=== PATIENT | female | born 1955 | race Caucasian/White ===

== ENCOUNTER 2018-10-22 08:20 | Outpatient (REF) | payer OTHER, SELFPAY ==
[2018-10-22 12:07] LABS: HGB 14.8 g/dL (12.0-15.5); Mean Corp. HGB Concentration 32.9 g/dL (32.0-36.0); Mean Corpuscular Hemoglobin 30.2 pg (27.0-33.0); Mean Corpuscular Volume 91.8 fL (80-95); Mean Platelet Volume 10.4 fL (8.0-11.0); Platelet Count 251 x1000/uL (130-400); RBC Distribution Width 13.7 % (11.7-14.6); White Blood Cell Count 5.14 k/cumm (4.4-10.8)
[2018-10-22 12:50] LABS: ALT 51 U/L (12-78); AST 26 U/L (15-37); Alkaline Phosphatase 88 U/L (46-116); Anion Gap 9.9 mmol/L (3-11); BUN 16 mg/dL (7-18); Bilirubin, Total 0.4 mg/dL (0.2-1.0); CO2 28.1 mmol/L (21.0-32.0); CREATININE 0.74 mg/dL (0.55-1.02); Calcium 9.2 mg/dL (8.5-10.1); Chloride 106 mmol/L (98-107); Cholesterol 208 mg/dL (50-200); Glucose 97 mg/dL (70-100); HDL Cholesterol 54 mg/dL (40-60); LDL CHOLESTEROL 127 mg/dL (<100); Potassium 4.1 mmol/L (3.5-5.1); Sodium 144 mmol/L (136-145); TSH (W/Ref FT4) 2.66 uIU/mL (0.358-3.74); Total Protein 6.6 g/dL (6.4-8.2); Triglyceride 111 mg/dL (30-150)
== END 2018-10-22 08:40 ==
LOC: NCHCN 08:20
PROVIDERS: PCP Family Medicine; Visit Provider Family Medicine
DX: Z00.00 Encounter for general adult medical examination without abnormal findings (principal); Z13.220 Encounter for screening for lipoid disorders; Z13.29 Encounter for screening for other suspected endocrine disorder
CPT/HCPCS: 80053; 80061; 83721; 85027; 84443

== ENCOUNTER 2018-10-23 00:19 | Outpatient (CLI) | payer OTHER, SELFPAY ==
--- NOTE | 2018-10-23 15:48 | DI.DEXA_ITS ---
SYMPTOMS/DIAGNOSIS: MENOPAUSE SCREENING, Z78.0 DEXA SCAN: DEXA scan was performed according to the usual protocol. The findings for left hip scanning are T score -.8 with left femoral neck T score -.6. The lumbar spine scanning shows T score -.3. The left forearm scanning shows T score -.5. CONCLUSION: Findings consistent with normal bone density according to the WHO criteria. Please note that the lateral vertebral scanogram shows no evidence of a vertebral compression fracture.
--- NOTE | 2018-10-23 16:00 | DI.MAMMO_ITS ---
SYMPTOMS/DIAGNOSIS: SCREENING, Z12.31 MAMMOGRAM: Mammograms were interpreted according to the usual protocol including computer analysis with CAD system, tomosynthesis and C view imaging. The breasts are of moderate density with fairly symmetrical distribution of fibroglandular tissue. No dominant mass or clumped microcalcification is identified in either breast. Current examination is compared with the previous examinations including June 2010 and there has been no gross interval change in appearance in comparison with the previous studies. CONCLUSION: No specific evidence of malignancy at this time. Routine screening examinations are suggested at yearly intervals due to the family history of breast carcinoma. Category 1, breast density category B. MQSA ASSESSMENT OF FINDINGS: Negative. Category 1. Patient will receive a letter notifying them of these results. BI-RADS category B. There are scattered areas of fibroglandular density.
== END 2018-10-23 00:39 ==
PROVIDERS: PCP Family Medicine; Visit Provider Family Medicine
DX: Z12.31 Encounter for screening mammogram for malignant neoplasm of breast (principal); Z80.3 Family history of malignant neoplasm of breast; Z13.820 Encounter for screening for osteoporosis; Z78.0 Asymptomatic menopausal state
CPT/HCPCS: 77063; 77067; 77080

== ENCOUNTER 2018-11-07 09:51 | Outpatient (REF) | payer OTHER, SELFPAY ==
--- NOTE | 2018-11-07 08:45 | PAPFT_PTH ---
PATIENT: Teto Pena LOC: [facility] U#:[id number] AGE/SX: 63/F ROOM: RE11/07/[address]: Brandi Verma : 1955 BED: DIS: 11/07/2018 SPEC #: [id number] RECD: 11/07/18 12:54 STATUS: RAO REQ #: [id number] ALEX: 11/07/18 08:[address]: Brandi Verma DEPT: [facility] Cytology RECD BY: Shey Shukla ENTERED: 11/07/18 12:54 SP TYPE: PAPFT OTHR DR: Suzanne Kim Tissues: 1 - CX/ENDOCX FOR PAP SMEARS Procedures: PAP THIN PREP/UVM Screening HPV DNA PROBE Comments: [id number]
== END 2018-11-07 10:11 ==
LOC: NCHCN 09:51
PROVIDERS: PCP Family Medicine; Visit Provider Nurse Practitioner Family
DX: Z12.4 Encounter for screening for malignant neoplasm of cervix (principal); Z11.51 Encounter for screening for human papillomavirus (HPV); Z00.00 Encounter for general adult medical examination without abnormal findings; Z01.419 Encounter for gynecological examination (general) (routine) without abnormal findings
CPT/HCPCS: 88142; 87624

== ENCOUNTER 2018-11-19 01:22 | Outpatient (CLI) | payer OTHER, SELFPAY ==
--- NOTE | 2018-11-19 15:24 | DI.US_ITS ---
SYMPTOM/DIAGNOSIS: BILATERAL CAROTID BRUITS R09.89 ULTRASOUND CAROTIDS: The carotid arteries appear intact. Antegrade flow was noted in the vertebrals. Velocity measurements reveal no evidence of significant carotid stenosis.
== END 2018-11-19 01:42 ==
PROVIDERS: PCP Family Medicine; Visit Provider Nurse Practitioner Family
DX: R09.89 Other specified symptoms and signs involving the circulatory and respiratory systems (principal)
CPT/HCPCS: 93880

== ENCOUNTER 2019-04-19 06:51 | Day surgery (SDC) | payer OTHER, SELFPAY ==
[2019-04-19 06:58] VITALS: BP 136/76; PULSE 75; RESP 16; TEMP 37.1; O2SAT 97
[2019-04-19] MEDS: Lactated Ringers 1,000 ML 80 ML IV (07:20)
--- NOTE | 2019-04-19 07:56 | W.PM.HP.N ---
Date of service: 04/19/19 Time of Service: 07:57 Assessment and Plan Assessment and plan (1) Encounter for screening colonoscopy: Status: Acute Assessment and plan: I advised colonoscopy. The procedure was described including the risks of perforation with need for surgery or bleeding. Prep instructions discussed. Patient agrees to proceed. History of Present Illness Narrative: Patient presents for her first screening colonoscopy. No FH colon cancer No abdominal pain, no change in bowel habits or blood in the stool. Review of Systems All systems reviewed & are unremarkable except as noted in HPI and below PFSH Medical History Eczema (Acute) Hypertension (Chronic) Surgical History History of back surgery (Acute) History of total bilateral knee replacement (Acute ~09/2009) Status post revision of total knee replacement (Acute ~03/2011) Family History Other Breast cancer Social History Smoking/Tobacco Use Status: Never Alcohol Intake: current Alcohol Intake frequency: a few times a month Substance use type: does not use Do you feel safe at home: Yes Do you feel safe in your relationship?: Yes Meds Home Medications and Allergies Home Medications Medication Instructions Recorded Confirmed Type calcium carbonate 500 mg calcium 500 mg PO DAILY 02/12/19 04/19/19 History (1,250 mg) capsule lisinopril 10 mg tablet 10 mg PO HS 02/12/19 04/19/19 History pysazptc-rmd-jtnt-FA-Ca carb-vit K 1 tab PO DAILY 02/12/19 04/19/19 History 18 mg iron-400 mcg-500 mg tablet omega-3 fatty acids 1,000 mg 1,000 mg PO DAILY 02/12/19 04/19/19 History capsule bisacodyl 5 mg tablet,delayed 5 mg PO ONCE #4 tab 03/15/19 04/19/19 Rx release polyethylene glycol 3350 17 238 g PO ONCE #238 gm 03/15/19 04/19/19 Rx gram/dose oral powder Allergies Allergy/AdvReac Type Severity Reaction Status Date / Time Penicillins Allergy Unknown Verified 04/16/19 14:27 acetaminophen [From Percocet] AdvReac Mild Nausea and Unverified 04/16/19 14:27 vomiting oxycodone [From Percocet] AdvReac Mild Nausea and Unverified 04/16/19 14:27 vomiting Exam Const General: healthy appearing and not in acute distress Nutritional Appearance: well nourished Orientation: oriented x3 HENMT Head: normal to inspection Eyes Sclera: sclerae normal Pupils: PERRL Neck Neck: no lymphadenopathy Thyroid: thyroid normal Lymphatic: no lymphadenopathy noted Chest Breast inspection: normal inspection of the axillae Resp Effort & Inspection: normal respiratory effort Auscultation: clear to auscultation bilaterally and no wheezes Cardio Rate: regular rate Rhythm: regular rhythm Pulses: dorsalis pedis pulses present GI Inspection: non-distended Palpation: soft, no hepatosplenomegaly, no hernias and nontender Skin General skin exam: no rashes or lesions noted Neuro General: alert Cognition: normal cognition Extrem General: normal to inspection Psych Affect: normal affect Attitude: cooperative Results Last Vital Signs Temp 98.8 F 04/19/19 06:58 Pulse 75 04/19/19 06:58 Resp 16 04/19/19 06:58 BP 136/76 04/19/19 06:58 Pulse Ox 97 04/19/19 06:58
--- NOTE | 2019-04-19 08:03 | W.PM.DSUDISC ---
Discharge Plan Disposition Patient Disposition: HOME Condition: Good Discharge Details Reason For Visit: Colonoscopy Attending Provider: Maegan Goodrich Primary Care Provider: Suzanne Kim Home Meds and New Rx's Prescriptions: Continued Women's Multivitamin 18 mg iron-400 mcg-500 mg tablet 1 tab PO DAILY RF: 0 omega-3 fatty acids [Fish Oil Concentrate] 1,000 mg capsule 1,000 mg PO DAILY RF: 0 calcium carbonate 500 mg calcium (1,250 mg) capsule 500 mg PO DAILY RF: 0 lisinopril 10 mg tablet 10 mg PO HS RF: 0 Discontinued polyethylene glycol 3350 17 gram/dose powder 238 g PO ONCE Qty: 238 RF: 0 bisacodyl [Dulcolax (bisacodyl)] 5 mg tablet,delayed release (DR/EC) 5 mg PO ONCE Qty: 4 RF: 0 Discharge Instructions Additional Instructions: Findings: Two small polyps were removed. My office will contact you with biopsy results. Follow up: Plan for a follow up colonoscopy in 5 years. Please call if you develop: fevers >101.5 Nausea or Vomiting Abdominal pain that is not transient DAY SURGERY UNIT POST COLONOSCOPY INSTRUCTIONS 1. Because there will be medication in your system for the next 24 hours, you may feel a little sleepy. Your coordination will be affected. Therefore: a. Do not drive or operate dangerous equipment for 24 hours. b. Do not drink alcohol beverages for 24 hours (not even beer). c. Plan to go home and rest for the day. 2. Generally there are no restrictions on your activity after a day or so has gone by, but you may feel a bit fatigued for a few days. 3 After you arrive home you may have a light meal and return to a normal diet as you can tolerate it without feeling sick to your stomach. 4. After surgery, you may feel pain or discomfort. This should be only transient, but if it persists please contact your doctor. 5. If there are any questions regarding the findings of your procedure, please feel free to contact your doctor. 6. If you are unable to contact your doctor with a problem, contact the hospital at [phone]. 7. Continue all your regular medications unless directed otherwise. I understand the above instructions and have no questions. Signature of Patient or Responsible Adult Escort Date/Time Name of Responsible Adult Escort Signature of Nurse Date/Time Activity:: Activity as Tolerated Diet:: As Tolerated Discharge Orders Discharge Orders: Discharge Order (Routine); Ordered 04/19/19 Ordered By: Maegan Goodrich DS: Diagnosis Discharge Diagnosis (1) Encounter for screening colonoscopy: Status: Acute (2) Colon polyps: Status: Acute
[2019-04-19 09:20] VITALS: BP 130/79; PULSE 60; RESP 16; TEMP 36.4; O2SAT 100
--- NOTE | 2019-04-19 09:40 | BOWEL_PTH ---
PATIENT: Teto Pena LOC: [facility] U#:[id number] AGE/SX: 64/F ROOM: RE04/19/[address]: Maegna Goodrich MD : 1955 BED: DIS: 04/19/2019 SPEC #: [id number] RECD: 04/19/19 12:48 STATUS: RAO REQ #: [id number] ALEX: 04/19/19 09:[address]: Maegan Goodrich DEPT: Surgical Specimen RECD BY: Shey Shukla ENTERED: 04/19/19 12:50 SP TYPE: Bowel OTHR DR: Suzanne Kim Tissues: 1 - BIOPSY BOWEL 2 - BIOPSY BOWEL Procedures: GROSS AND MICRO LEVEL 4 Comments: [id number]
--- NOTE | 2019-04-19 10:47 | COLE_ITS ---
DATE OF PROCEDURE: April 19, 2019 PREOPERATIVE DIAGNOSIS: Screening. POSTOPERATIVE DIAGNOSIS: 1. Colon polyps. 2. Mild diverticulosis. PROCEDURE: Colonoscopy with cold forceps polypectomy. SURGEON: Maegan Goodrich M.D. ANESTHESIA: General. INDICATIONS: This is a 64-year-old woman who presents for her first screening colonoscopy. She is a symptomatic and has no family history of colon cancer. PROCEDURE: She was placed in the left Sim's position. Propofol was titrated to sedation. Digital r ectal examination revealed no abnormalities. The scope was advanced to the cecum without difficulty. The ileocecal valve and appendiceal orifice were clearly identified. Her prep was excellent. The scope was slowly withdrawn with no abnormalities seen within the ascending or transverse colon. In t he mid descending colon there was a diminutive polyp that was removed with the cold forceps and sent to Pathology. She also had a < 1 cm polyp in the sigmoid region that was removed with cold forceps a nd sent to Pathology. This had the appearance of a hyperplastic polyp. I visualized one diverticulu m in the vicinity. The rectum was normal, including on retroflex view. She tolerated the procedure well and was stable to recovery. If the polyps are adenomatous, she will need a follow-up colonoscop y again in five years. cc: Suzanne Kim M.D.
== END 2019-04-19 09:40 | disposition home or self-care (01) ==
PROVIDERS: PCP Family Medicine; Visit Provider Surgery
PROC: 0DJD8ZZ Inspection of Lower Intestinal Tract, Via Natural or Artificial Opening Endoscopic (ICD-10-PCS; CPT 45378; principal; 2019-04-19 08:15)
DX: Z12.11 Encounter for screening for malignant neoplasm of colon (principal); D12.4 Benign neoplasm of descending colon; K57.30 Diverticulosis of large intestine without perforation or abscess without bleeding; I10 Essential (primary) hypertension
CPT/HCPCS: 45380; 88305; NC

== ENCOUNTER 2020-07-24 02:41 | Outpatient (CLI) | payer OTHER, SELFPAY ==
--- NOTE | 2020-07-24 | DI.MAMMO_ITS ---
EXAM: MAMMO SCREENING CLINICAL HISTORY: SCREENING, Z12.31 TECHNIQUE: Mammograms were interpreted according to the usual protocol including computer analysis w [place] CAD system, tomosynthesis and C-view imaging. COMPARISON: 2019 FINDINGS: The breasts are composed of heterogeneously dense fibroglandular densities, Breast Density category C . No suspicious masses or suspicious microcalcifications are seen. Vascular calcifications are inciden tally noted. No skin thickening or abnormal axillary lymph nodes are seen. There has been no significant change from prior exams. IMPRESSION: BI-RADS Category 1, Negative mammogram. Yearly screening mammography is recommended. Breast Density Category C, heterogeneously Dense. The mammogram demonstrates the patient's breast tissue is dense. Dense breast tissue is very common a nd is not abnormal but dense breast tissue can make it harder to find cancer on a mammogram. Also, de nse breast tissue may increase breast cancer risk. This information about the result of the mammogram report was provided to the patient to raise their awareness. Use this report when you speak with the patient about their risks for breast cancer, which includes their family history. At that time, you may recommend additional screening tests (Ultrasound or MRI) as they might be useful based on their r isk. A negative radiographic report should not delay biopsy if a dominant or clinically suspicious mass is present. Up to ten percent of cancers are not identified on mammography. A negative report may reinforce clinical impression. Adenosis and dense breasts may obscure an underlying neoplasm. False positive reports average 6 to 10%.
== END 2020-07-24 02:42 ==
LOC: DI 02:41
PROVIDERS: PCP Nurse Practitioner Family; Visit Provider Nurse Practitioner Family
DX: Z12.31 Encounter for screening mammogram for malignant neoplasm of breast (principal)
CPT/HCPCS: 77063; 77067

== ENCOUNTER 2020-09-07 09:01 | Outpatient (REF) | payer OTHER, SELFPAY ==
[2020-09-07 13:36] LABS: ALT 47 U/L (14-59); AST 23 U/L (15-37); Anion Gap 6.5 mmol/L (3-11); BUN 15 mg/dL (7-18); CO2 29.5 mmol/L (21.0-32.0); CREATININE 0.7 mg/dL (0.55-1.02); Calcium 9.4 mg/dL (8.5-10.1); Calculated LDL 135 mg/dL (<100); Chloride 107 mmol/L (98-107); Cholesterol 229 mg/dL (<200); Glucose 95 mg/dL (74-106); HDL Cholesterol 45 mg/dL (40-60); Potassium 4.2 mmol/L (3.5-5.1); Sodium 143 mmol/L (136-145); Triglyceride 249 mg/dL (<150)
== END 2020-09-07 09:02 | disposition home or self-care (01) ==
LOC: NCHCN 09:01
PROVIDERS: PCP Nurse Practitioner Family; Visit Provider Nurse Practitioner Family
DX: E78.5 Hyperlipidemia, unspecified (principal); I10 Essential (primary) hypertension; Z00.00 Encounter for general adult medical examination without abnormal findings
CPT/HCPCS: 80048; 80061; 84450; 84460

== ENCOUNTER 2021-03-24 09:22 | Emergency (ER) | payer OTHER, SELFPAY ==
[2021-03-24 09:27] VITALS: BP 170/91; PULSE 109; TEMP 36.5; O2SAT 97
--- NOTE | 2021-03-24 09:30 | DI.CT_ITS ---
Exam(s) CT NECK W EXAM: CT NECK W CLINICAL HISTORY: eval Right side mass. TECHNIQUE: Imaging Protocol: Axial CT with IV contrast was performed with multi-slice acquisition a nd multi-planar and/or 3D reconstructions. CONTRAST MATERIAL: Intravenous: Omnipaque 350 Contrast volume:100 mL COMPARISON: No exams were available for comparison FINDINGS: Uppermost images reveal some mucosal thickening in the left maxillary sinus. No fluid level therein. Visualized right maxillary sinus is clear. Visualized sphenoid sinuses are clear. The tissues of the nasopharynx are symmetrical. The uvula is relatively midline but there is swelling in the right-side of the veronika and hypopharynx do wn to the level the hyoid bone. This appears to be related to an enlarged the right submandibular gl and which measures 2.5 cm AP by 2.4 cm wide by 4 cm cranial and contains a prominent 13 by 8 by 11 mi llimeter calculus at the junction with the submandibular [place]'s duct. There is some surrounding e heidi. No prominent lymphadenopathy. The opposite-left submandibular gland appears unremarkable and does not contain calculi. Both parotid glands appear unremarkable. Edema from the above process exhibits some mass effect upon the ipsilateral right vallecula. Below t his level the aryepiglottic folds and vocal cords appear unremarkable as does the subglottic airway. Thyroid gland exhibits normal size and no obvious nodules. There is no subclavicular adenopathy. IMPRESSION: 1. There is a large 13 x 8 x 11 millimeter calculi in the right submandibular gland at José Miguel's duct . There is enlargement of the ipsilateral submandibular gland and surround edema as described above. ENT consultation recommended. 2. The opposite-left submandibular gland appears unremarkable and there are no significant focal find ings in the parotid glands. Report called by myself to ER provider RADIATION DOSE DELIVERED: 268.78mGy.cm Total DLP DATA REPOSITORY: All CT scans at this facility are submitted to the National Radiology Data Registry (NRDR) Dose Index Registry (DIR) with the [employer] (ACR). RADIATION OPTIMIZATION: All CT scans at this facility use at least one of these dose optimization te chniques: automated exposure control; mA and/or kV adjustment per patient size (includes targeted exa ms where dose is matched to clinical indication); or iterative reconstruction.
--- NOTE | 2021-03-24 09:47 | W.ED.GENAD ---
Discharge Plan Disposition Patient Disposition: HOME Condition: Improving Discharge Details Clinical Impression: Sialadenitis Primary Care Provider: Brandi Verma ED Provider: Carmela Warner Home Meds and New Rx's Prescriptions: New clindamycin HCl 300 mg capsule 300 mg PO BID 7 Days Qty: 14 RF: 0 prednisone 20 mg tablet 40 mg PO DAILY 5 Days Qty: 10 RF: 0 Continued losartan 50 mg tablet 100 mg PO DAILY RF: 0 amoxicillin-pot clavulanate 875-125 mg tablet 1 tab PO BID RF: 0 No Action clindamycin HCl 300 mg capsule 600 mg PO DIRECTED PRNRF: 0 Discharge Instructions Instructions: Sialoadenitis (ED) Additional Instructions: Take the pain medication, steroids and antibiotics as directed. Try yogurt or probiotic while on antibiotics. Please follow-up with ear nose and throat soon as possible. Return to the ER for any worsening trouble swallowing, trouble breathing, fever, worsening swelling or any concerns. Please suck on sour patch candies or similar every hour. Continue warm moist massage at least 3 times a day as tolerated. Please take Ibuprofen with food every 4-6 hours as needed for pain and swelling. Referrals: Julien Thomas MD [ [facility] STAFF PHYSICIAN] - 1 week (Right Sialadenitis) Brandi Verma [Primary Care Provider] - 2 weeks Discharge Data Discharge Date/Time-TO BE ENTERED AT DEPARTURE: 03/24/21 14:21 Medical Decision Making 65-year-old female presents to the ER with chief complaint of right sided neck mass which she reports began night. She was recently diagnosed with cellulitis/peritonitis and has been taking antibiotics/Augmentin since Monday. She has had 5 doses of the Augmentin with no improvement. Pain has gotten worse, she reports pain with swallowing, has not taken her blood pressure medication unable to eat or drink since worsening. She has had an episode of this similarly and had improvement with antibiotics within a couple of days. She reports that she has had some drainage in the shower with warm compresses. She has been sucking on sour patch candies little to no relief. She has a past medical history of hypertension and eczema surgical history includes bilateral knee replacement, back surgery and. She is a never smoker. Drinks alcohol few times a month. She has been taking Tylenol or ibuprofen for pain. She has not taken anything for pain prior to arrival today. 1233: Spoke with Dr. Thomas with ENT discussed patient's case and details he was able to personally view the CT images. Who recommends admission with IV antibiotics. He also recommends 12mg Dexamethasone, clindamycin 90 mg every 8 and Augmentin twice daily, sour candies every hour while awake and warm moist massage, surgery in 6-8 weeks after infection is controlled. Exam(s) COMPARISON: No exams were available for comparison FINDINGS: Uppermost images reveal some mucosal thickening in the left maxillary sinus. No fluid level therein. Visualized right maxillary sinus is clear. Visualized sphenoid sinuses are clear. The tissues of the nasopharynx are symmetrical. The uvula is relatively midline but there is swelling in the right-side of the veronika and hypopharynx down to the level the hyoid bone. This appears to be related to an enlarged the right submandibular gland which measures 2.5 cm AP by 2.4 cm wide by 4 cm cranial and contains a prominent 13 by 8 by 11 millimeter calculus at the junction with the submandibular [place]'s duct. There is some surrounding edema. No prominent lymphadenopathy. The opposite-left submandibular gland appears unremarkable and does not contain calculi. Both parotid glands appear unremarkable. Edema from the above process exhibits some mass effect upon the ipsilateral right vallecula. Below this level the aryepiglottic folds and vocal cords appear unremarkable as does the subglottic airway. Thyroid gland exhibits normal size and no obvious nodules. There is no subclavicular adenopathy. IMPRESSION: 1. There is a large 13 x 8 x 11 millimeter calculi in the right submandibular gland at [place]'s duct. There is enlargement of the ipsilateral submandibular gland and surround edema as described above. ENT consultation recommended. 2. The opposite-left submandibular gland appears unremarkable and there are no significant focal findings in the parotid glands. 1315: Spoke with patient regarding CT results, lab results, discussion with Dr. Thomas ear nose and throat and his recommendation for admission for IV antibiotics and surgery at a later date. She verbalized understanding. She would prefer to be discharged home with 2 courses of oral antibiotic and outpatient follow-up with ear nose and throat. I did discuss strict return instructions with her at length. I did discuss his recommendations for sour candies every hour while awake and massage and clindamycin and Augmentin. She verbalizes understanding. Patient opted to be discharged home, with strict return instructions relayed. HPI General Mode of arrival: ambulatory. Date/Time Provider Initiated Documentation: 03/24/21 09:32. Limitations to Documentation: no limitations. Information obtained by: patient, family, RN notes reviewed and old records reviewed. HPI Narrative: 65-year-old female presents to the ER with chief complaint of right sided neck mass which she reports began night. She was recently diagnosed with cellulitis/peritonitis and has been taking antibiotics/Augmentin since Monday. She has had 5 doses of the Augmentin with no improvement. Pain has gotten worse, she reports pain with swallowing, has not taken her blood pressure medication unable to eat or drink since worsening. She has had an episode of this similarly and had improvement with antibiotics within a couple of days. She reports that she has had some drainage in the shower with warm compresses. She has been sucking on sour patch candies little to no relief. She has a past medical history of hypertension and eczema surgical history includes bilateral knee replacement, back surgery and. She is a never smoker. Drinks alcohol few times a month. She has been taking Tylenol or ibuprofen for pain. She has not taken anything for pain prior to arrival today. Related Data Home Medications Medication Instructions Recorded Confirmed amoxicillin-pot clavulanate 1 tab PO BID 03/24/21 03/24/21 clindamycin HCl 300 mg PO BID 7 Days #14 cap 03/24/21 clindamycin HCl 600 mg PO DIRECTED PRN 03/24/21 03/24/21 losartan 100 mg PO DAILY 03/24/21 03/24/21 prednisone 40 mg PO DAILY 5 Days #10 tab 03/24/21 Previous Rx's Medication Instructions Recorded clindamycin HCl 300 mg PO BID 7 Days #14 cap 03/24/21 prednisone 40 mg PO DAILY 5 Days #10 tab 03/24/21 Allergies Allergy/AdvReac Type Severity Reaction Status Date / Time Penicillins Allergy Unknown Verified 03/24/21 09:33 acetaminophen [From Percocet] AdvReac Mild Nausea and Unverified 03/24/21 09:33 vomiting oxycodone [From Percocet] AdvReac Mild Nausea and Unverified 03/24/21 09:33 vomiting General Stated Complaint: Sorethroat JODEE: 3 Review of Systems All systems reviewed & are unremarkable except as noted in HPI and below Constitutional Constitutional: Denies headache(s) ENT Ears, Nose, Mouth, and Throat: Denies headache(s), Reports neck mass, Reports neck pain and Reports odynophagia Gastrointestinal Gastrointestinal: Reports odynophagia Musculoskeletal Musculoskeletal: Reports neck pain Neurologic Neurologic: Denies headache(s) [facility] Medical History (Updated 03/24/21 @ 13:23 by Carmela Warner) Eczema Hypertension Surgical History (Updated 04/23/19 @ 07:29 by Sylvia Diaz RN) History of back surgery History of colonoscopy 04/30 - tubular adenoma. History of total bilateral knee replacement (~09/2009) Status post revision of total knee replacement (~03/2011) Family History Other Breast cancer Social History Smoking/Tobacco Use Status: Never Smoking risk assessment performed?: Yes Alcohol Intake: current Alcohol Intake frequency: a few times a month Alcohol type: beer Drug use: Never Substance use type: does not use Do you feel safe at home: Yes Do you feel safe in your relationship?: Yes Exam Neck Neck: trachea midline, no midline deformity, tender and submandibular swelling (Right lateral side) Neck images: 1. Forearm mass approximately 2 cm x 2 cm. Tender with palpation. Surrounding swelling no erythema no warmth or induration. 2. Swelling Course Vital Signs Vital signs: Vital Signs Temperature 36.5 C 03/24/21 09:27 Pulse 109 H 03/24/21 09:27 Blood Pressure 170/91 H 03/24/21 09:27 Pulse Oximetry 97 03/24/21 09:27 Temperature 36.5 C 03/24/21 09:27 Temperature Source Temporal Artery Scan 03/24/21 09:27 Pulse 109 H 03/24/21 09:27 Respiratory Effort Non-Labored 03/24/21 09:31 Blood Pressure 170/91 H 03/24/21 09:27 Blood Pressure Position Sitting 03/24/21 09:27 Pulse Oximetry 97 03/24/21 09:27 Oxygen Delivery Method Room Air 03/24/21 09:27 Oxygen Flow Rate 0 03/24/21 09:27 Pain Level 9 03/24/21 09:27 PAWSS Have you Been Recently Intoxicated or Drunk Within the Last 30 days?: No Have you Ever Experienced Previous Episodes of Alcohol Withdrawal?: No Have you ever Experienced Withdrawal Seizures?: No Have you ever Experienced Delirium Tremens(DT)s?: No Have you ever undergone Alcohol Rehabilitation Treatment (i.e, inpt ot outpatient treatment programs)?: No Have you ever Experienced Blackouts?: No Have you ever Combined Alcohol with other Downers within the last 90 days?: No Have you ever Combined Alcohol with any other Substance of Abuse during the last 90 days?: No Positive Blood Alcohol level on Presentation? [PCS.BAL]: No Evidence of Increased Autonomic Activity (i.e. HR>120, tremor, sweating, agitation, nausea)?: No Result: 0
[2021-03-24 10:07] LABS: Abs Immature Grans 0.04 10^3/uL (0.0-0.06); Absolute Basophil Count 0.05 10^3/uL (0.0-0.2); Absolute Eosinophil Count 0.09 10^3/uL (0.0-0.7); Absolute Monocyte Count 0.86 10^3/uL (0.1-0.8); Absolute Neutrophil Count 12.27 10^3/uL (1.2-6.7); Basophils % 0.3; Eosinophils % 0.6; HCT 47.1 % (36.0-46.0); HGB 15.4 g/dL (11.2-15.7); Immature Grans % 0.3; Lymphocytes % 13.7; MCH 29.7 pg (27.0-33.0); MCHC 32.7 % (32.0-36.0); MCV 90.9 fL (80-95); MPV 10.2 fL (8.0-11.0); Monocytes % 5.6; Neutrophils % 79.5; Nucleated RBC 0 %; Platelet Count 277 10^3/uL (130-400); RBC 5.18 10^6/uL (3.93-5.22); RDW 12.1 % (11.7-14.6); RDW-SD 40.5 fL; WBC 15.43 10^3/uL (4.4-10.8)
[2021-03-24] MEDS: HYDROmorphone 2 MG/ML VIAL 0.5 MG IVP (10:09)
[2021-03-24 10:10] LABS: Absolute Lymphocyte Count 2.11 10^3/uL (1.2-3.4)
[2021-03-24] MEDS: Normal Saline Flush 10 ML SYR IVP ×2 (10:11→11:46)
[2021-03-24 10:20] LABS: ALT 35 U/L (14-59); AST 20 U/L (15-37); Albumin 4.6 g/dL (3.4-5.0); Alkaline Phosphatase 132 U/L (46-116); Anion Gap 11.6 mmol/L (3-11); BUN 10 mg/dL (7-18); Bilirubin, Total 0.9 mg/dL (0.2-1.0); CO2 28.4 mmol/L (21.0-32.0); CREATININE 0.9 mg/dL (0.55-1.02); Calcium 9.6 mg/dL (8.5-10.1); Chloride 99 mmol/L (98-107); Glucose 111 mg/dL (74-106); Potassium 3.4 mmol/L (3.5-5.1); Sodium 139 mmol/L (136-145); Total Protein 8.3 g/dL (6.4-8.2)
[2021-03-24] MEDS: Normal Saline - Diluent 50 ML VIAL IV (11:45)
[2021-03-24] MEDS: Omnipaque 350 MG/ML 100 ML BTL IJ (11:46)
--- NOTE | 2021-03-24 12:18 | NUR.NOTE ---
pt returns from ct seen in bed relaxed, no signs of distress or pain, al needs met, call guardado within reach, will continue to monitor
[2021-03-24] MEDS: CLINDAMYCIN 600 MG/50 ML BAG 100 MG IVPB (12:38)
[2021-03-24] MEDS: Ketorolac 30 MG/ML VIAL (13:12)
[2021-03-24] MEDS: Dexamethasone 10 MG/ML VIAL IVP (13:16)
== END 2021-03-24 14:21 | disposition home or self-care (01) ==
PROVIDERS: Emergency Provider Registered Nurse Emergency; PCP Nurse Practitioner Family
DX: K11.20 Sialoadenitis, unspecified (principal)
CPT/HCPCS: 36415; 70491; 80053; 96365; 96375; 99285; 85025; 99284; J1100; J1885; J3490

== ENCOUNTER 2021-07-16 01:23 | Outpatient (CLI) | payer MEDICARE, SELFPAY ==
[2021-07-16 11:09] LABS: Source Nasal/Nares
[2021-07-16 13:51] LABS: COVID-19 PCR Negative (Negative)
== END 2021-07-16 01:24 | disposition home or self-care (01) ==
PROVIDERS: PCP Nurse Practitioner Family; Visit Provider Otolaryngology
DX: Z20.822 Contact with and (suspected) exposure to COVID-19 (principal)
CPT/HCPCS: 87635

== ENCOUNTER 2021-07-19 07:19 | Day surgery (SDC) | payer MEDICARE, SELFPAY ==
[2021-07-19] VITALS (8 sets, daily range): BP systolic 134–155; BP diastolic 67–91; PULSE 57–90; RESP 12–18; TEMP 36.3–37.1; O2SAT 93–99; BMI 28.3
[2021-07-19] MEDS: CLINDAMYCIN 900 MG/50 ML BAG 50 MG IVPB (08:00)
[2021-07-19] MEDS: Lactated Ringers 1,000 ML 80 ML IV (08:00)
--- NOTE | 2021-07-19 08:21 | W.ANESPRE ---
General Info Date of Service Date Performed: 07/19/21 Height: 5 ft 2 in Weight: 70.2 kg Body Mass Index (BMI): 28.3 Surgical Procedure: Operation Date: 07/19/21 08:55 Proposed Procedures Side Surgeon p Transoral Rt Submandibular Stone Removal w/possible Rt External Submandibular Gland Excision Right Julien Thomas MD Meds Allergies and Home Medications Allergies Allergy/AdvReac Type Severity Reaction Status Date / Time Penicillins Allergy Unknown Verified 07/19/21 07:49 oxycodone [From Percocet] AdvReac Mild Nausea and Verified 07/19/21 07:49 vomiting Eggs AdvReac Stomach Uncoded 07/19/21 07:49 Ache Home Medication Medication Instructions Recorded losartan 100 mg PO HS 03/24/21 clindamycin HCl 75 mg capsule 450 mg PO TID cap 07/07/21 ibuprofen 200 mg tablet 800 mg PO Q6H PRN tab 07/07/21 Current Visit Medications: Current Medications Generic Name Dose Route Start Last Admin Trade Name Freq PRN Reason Stop Dose Admin Ringer's Solution 1,000 mls @ 80 mls/hr 07/19/21 06:00 07/19/21 08:00 IV 08/15/21 23:59 80 mls/hr INFUSION NINI Administration Clindamycin Phosphate/Dextrose 900 mg in 50 mls @ 50 mls/hr 07/19/21 06:00 07/19/21 08:00 Cleocin In D5w IVPB 07/19/21 23:59 50 mls/hr PREOP NINI Administration Tranexamic Acid 694 mg/ Sodium 56.94 mls @ 341.64 mls/hr 07/19/21 06:00 Chloride IVPB 07/19/21 23:59 PREOP NINI IV Miscellaneous Supplies 1 each 07/19/21 06:00 Iv Access IV 08/15/21 23:59 DIRECTED NINI Sodium Chloride 0 ml 07/19/21 06:00 Normal Saline Flush 10 Ml Syr IV 08/15/21 23:59 PRN PRN Sodium Chloride 0 ml 07/19/21 06:00 Normal Saline 10 Ml Vial IJ 08/15/21 23:59 DIRECTED PRN Sterile Water 0 ml 07/19/21 06:00 Water,Injection,Sterile 10 Ml Vial IJ 08/15/21 23:59 DIRECTED PRN PFSH Active Problems Active Problems: Problem Status Onset Code Hyperlipidemia E78.5 Eczema L30.9 Hypertension I10 Bilateral carotid bruits R09.89 DJD (degenerative joint disease) M19.90 Menopause Z78.0 Encounter for screening colonoscopy Z12.11 Colon polyps K63.5 Sialadenitis K11.20 Submandibular sialoadenitis K11.20 Submandibular sialolithiasis K11.5 Medical History Medical History Submandibular sialolithiasis Surgical History Surgical History (Updated 07/19/21 @ 07:49 by Carito Woodson RN) H/O tubal ligation History of back surgery History of colonoscopy 04/30 - tubular adenoma. 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) Tobacco Smoking/Tobacco Use Status: Former Tobacco Use Tobacco: How many years used: 5 Alcohol Alcohol Intake: current Alcohol intake frequency: holidays/special occasions only Alcohol type: wine Substance Use Substance use: Occasionally Substance use type: marijuana Details: marijuana a few days ago no alcohol for months Vital Signs and Lab Results Vital Signs Most Recent Vital Signs in EMR: Most Recent Vital Signs Temp Pulse Resp BP Pulse Ox 37.1 C 90 16 155/91 H 98 07/19/21 07:30 07/19/21 07:30 07/19/21 07:30 07/19/21 07:30 07/19/21 07:30 Lab Results Blood Type / Crossmatch: No Data to Display Complete Blood Count: No Data to Display Complete Metabolic Panel: No Data to Display Liver Function Panel: No Data to Display Coagulation Panel: No Data to Display Cardiac Panel: No Data to Display Arterial Blood Gas: No Data to Display Venous Blood Gas: No Data to Display Pancreas Panel: No Data to Display Thyroid Panel: No Data to Display Infectious Disease: Coronavirus (COVID-19)(PCR) Negative (Negative) 07/16/21 09:40 07/16/21 Coronavirus 2019 Source Nasal/Nares 07/16/21 09:40 07/16/21 Blood Cultures: No Data to Display Toxicology Panel: No Data to Display Imaging and Studies Imaging and Studies Study information below may be from another EMR and interpreted by another provider. Please see original notes in EMR for more complete details. Carotid Artery Summary:: Date of Exam: 11/19/18Sex: F Admission Date: 11/19/18 : 1955 Age: 63 Exam(s) a US:US carotid SYMPTOM/DIAGNOSIS: BILATERAL CAROTID BRUITS R09.89 ULTRASOUND CAROTIDS: The carotid arteries appear intact. Antegrade flow was noted in the vertebrals. Velocity measurements reveal no evidence of significant carotid stenosis. Anesthesia Assessment and Plan Anesthesia History Personal History: PONV Family History: No Family History of Anesthesia Complications Exercise Tolerance Exercise Tolerance: Metabolic Equivalents>4 Pertinent Negatives Pertinent Negatives: No Symptoms of GERD and No Major Cardiovascular Symptoms or Complaints Cardiac & Pulmonary Exam Cardiac Exam: Normal S1/S2 Heart Sounds Pulmonary Exam: Clear Bilateral Breath Sounds Implantable Cardiac Device Does patient have a Pacemaker or an ICD?: No Airway Exam Known Difficult Airway: No Mallampati Class: 1 Mouth Opening: Normal (> 3cm) Thyromental Distance: Greater than 3 cm Neck Range of Motion: Full ROM Neck Circumference: Normal Teeth Condition: Normal Dentition ASA Classification ASA Score: ASA 2 Emergency Case?: No NPO Status NPO Status: NPO Clears >2 hours, Solids >8 hours Anesthesia Plan Resuscitation Status: Full Code Anesthesia Technique: General Anesthesia Airway Planned: Endotracheal Tube Monitors Used: Standard Monitors
--- NOTE | 2021-07-19 09:35 | W.PM.OP ---
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 Options were explained to patient regarding further management. We discussed submandibular gland excision versus sialodocholithotomy, we discussed the risks and benefits of each including the possibility of duct stenosis leading to the need for submandibular gland excision on a delayed basis if we were able to remove the stone. The patient still wished to proceed with sialodocholithotomy as a first-line approach. The below was performed.. Findings: Right submandibular stone, solitary2 x 1 cm rounded salivary stone, solitary, calcific in appearance Procedure Description: After obtaining an adequate level of general endotracheal anesthesia the patient was prepped and draped in appropriate fashion. A bite block was placed on her left dentition to open the mouth, and a sweetheart was used to distract the tongue to the left. With pressure under her mandible, the stone was fairly easily identified in the submandibular duct. This lay approximately 3 cm back from the submandibular puncta. A longitudinal incision was made in the duct over the stone, and then the stone carefully removed from the duct. Palpation of the area revealed no secondary stones. The stone was examined revealing no evidence of acute fracture. After ensuring adequate hemostasis the patient was awakened and transported to recovery room in stable condition. I was present for the entire case.
--- NOTE | 2021-07-19 09:42 | W.PM.DSUDISC ---
Discharge Plan Disposition Patient Disposition: HOME Condition: Good Discharge Details Reason For Visit: Sialodocholithotomy Attending Provider: Julien Thomas Primary Care Provider: Brandi Verma Home Meds and New Rx's Prescriptions: New clindamycin HCl 300 mg capsule 300 mg PO TID Qty: 9 RF: 0 Discontinued clindamycin HCl 75 mg capsule 450 mg PO TID RF: 0 No Action ibuprofen 200 mg tablet 800 mg PO Q6H PRNRF: 0 losartan 50 mg tablet 100 mg PO HS RF: 0 Discharge Instructions Additional Instructions: Avoid foods with small seeds for the next 4 days. Starting tomorrow, sour candies or lemon wedges every hour while awake for the next 7 days. Push hydration starting today. Call with any significant swelling or concerns. Take antibiotics as directed. May shower as desired Referrals: Julien Thomas MD [ [facility] ST[facility]FF [facility]YSICIAN] - (2 weeks, please call for appointment prior to patient's departure) Activity:: Rest today, no driving for 48 hours Diet:: Avoid small seeds
[2021-07-19] MEDS: fentaNYL 100 MCG/2 ML VIAL IVP (10:14)
--- NOTE | 2021-07-19 10:29 | W.ANESPOSTOP ---
Postoperative Evaluation Date, Time and Location Date Performed: 07/19/21 Time Performed: 10:29 Patient Location: PACU Vital Signs Most Recent Imported Vital Signs: Most Recent Vital Signs Temp Pulse Resp BP Pulse Ox 36.5 C 64 12 135/71 93 07/19/21 10:20 07/19/21 10:20 07/19/21 10:20 07/19/21 10:20 07/19/21 10:20 Pain Score Most Recent Pain Score: Most Recent Pain Score Pain Level 0 07/19/21 10:04 Assessment Mental Status: Awake (Alert & Oriented to Patient Baseline) Airway and Respiratory Function: Patent airway with normal (patient baseline) respiratory exam Cardiovascular Function: Hemodynamically Stable Hydration Status: Adequately Hydrated Nausea & Vomiting: No Nausea or Vomiting Pain: Pain is tolerable per patient Peripheral Nerve Block: Patient did not receive a nerve block
[2021-07-19] MEDS: Ibuprofen 600 MG TAB PO (11:10)
[2021-07-19] MEDS: Acetaminophen Solution 650 MG/20.3 ML CUP PO (11:10)
== END 2021-07-19 11:47 | disposition home or self-care (01) ==
PROVIDERS: PCP Nurse Practitioner Family; Visit Provider Otolaryngology
PROC: (CPT 42410; principal; 2021-07-19 08:45)
DX: K11.5 Sialolithiasis (principal); K11.23 Chronic sialoadenitis; I10 Essential (primary) hypertension; E78.5 Hyperlipidemia, unspecified
CPT/HCPCS: 42330; A4600; J1100; J2001; J2405; J2704; J3010

== ENCOUNTER 2021-12-29 10:54 | Outpatient (REF) | payer MEDICARE, SELFPAY ==
[2021-12-29 15:16] LABS: HCT 44.4 % (36.0-46.0); HGB 14.9 g/dL (11.2-15.7); MCHC 33.6 % (32.0-36.0); MCV 90 fL (80-95); MPV 11.2 fL (8.0-11.0); Platelet Count 244 10^3/uL (130-400); RBC 4.96 10^6/uL (3.93-5.22); RDW 12.3 % (11.7-14.6); RDW-SD 40.4 fL; WBC 7.03 10^3/uL (4.4-10.8)
[2021-12-29 15:54] LABS: ALT 51 U/L (14-59); AST 26 U/L (15-37); Albumin 4.5 g/dL (3.4-5.0); Alkaline Phosphatase 101 U/L (46-116); Anion Gap 11.2 mmol/L (3-11); BUN 16 mg/dL (7-18); Bilirubin, Total 0.6 mg/dL (0.2-1.0); CO2 27.8 mmol/L (21.0-32.0); CREATININE 0.7 mg/dL (0.55-1.02); Calcium 9.4 mg/dL (8.5-10.1); Calculated LDL 149 mg/dL (<100); Chloride 104 mmol/L (98-107); Cholesterol 237 mg/dL (<200); Glucose 106 mg/dL (74-106); HDL Cholesterol 47 mg/dL (40-60); Sodium 143 mmol/L (136-145); Total Protein 7.1 g/dL (6.4-8.2); Triglyceride 207 mg/dL (<150)
== END 2021-12-29 10:55 | disposition home or self-care (01) ==
LOC: NCHCN 10:54
PROVIDERS: PCP Nurse Practitioner Family; Visit Provider Nurse Practitioner Family
DX: E78.5 Hyperlipidemia, unspecified (principal); I10 Essential (primary) hypertension
CPT/HCPCS: 80053; 80061; 85027

== ENCOUNTER 2022-09-14 01:17 | Outpatient (CLI) | payer MEDICARE, SELFPAY ==
--- NOTE | 2022-09-14 | DI.MAMMO_ITS ---
Exam(s) MAMMO SCREENING EXAM: MAMMO SCREENING CLINICAL HISTORY: SCREENING, Z12.39 TECHNIQUE: Mammograms were interpreted according to the usual protocol including computer analysis w [employer] CAD system, tomosynthesis and C-view imaging. COMPARISON: 2018 and 2020 FINDINGS: The breasts are composed of scattered fibroglandular densities, Breast Density category B. No suspicious masses or suspicious microcalcifications are seen. No skin thickening or abnormal axillary lymph nodes are seen. There has been no significant change from prior exams. IMPRESSION: BI-RADS Category 1, Negative mammogram Yearly screening mammography is recommended. Breast Density - Category B, scattered fibroglandular densities. A negative radiographic report should not delay biopsy if a dominant or clinically suspicious mass is present. Up to ten percent of cancers are not identified on mammography. A negative report may reinforce clinical impression. Adenosis and dense breasts may obscure an underlying neoplasm. False positive reports average 6 to 10%. Patient will receive a letter notifying them of these results.
== END 2022-09-14 01:37 ==
LOC: DI 01:17
PROVIDERS: PCP Nurse Practitioner Family; Visit Provider Nurse Practitioner Family
DX: Z12.31 Encounter for screening mammogram for malignant neoplasm of breast (principal)
CPT/HCPCS: 77063; 77067

== ENCOUNTER 2023-02-28 17:44 | Outpatient (REF) | payer MEDICARE, SELFPAY ==
[2023-02-28 20:52] LABS: HCT 39.6 % (36.0-46.0); HGB 13.4 g/dL (11.2-15.7); MCH 30.5 pg (27.0-33.0); MCHC 33.8 % (32.0-36.0); MCV 90 fL (80-95); MPV 10.9 fL (8.0-11.0); Platelet Count 267 10^3/uL (130-400); RBC 4.39 10^6/uL (3.93-5.22); RDW 12.2 % (11.7-14.6); RDW-SD 40.8 fL; WBC 9.43 10^3/uL (4.4-10.8)
[2023-02-28 20:56] LABS: ALT 35 U/L (14-59); AST 22 U/L (15-37); Albumin 4.2 g/dL (3.4-5.0); Alkaline Phosphatase 113 U/L (46-116); Anion Gap 8.8 mmol/L (3-11); BUN 16 mg/dL (7-18); Bilirubin, Total 0.5 mg/dL (0.2-1.0); CO2 28.2 mmol/L (21.0-32.0); CREATININE 0.8 mg/dL (0.55-1.02); Calcium 9.7 mg/dL (8.5-10.1); Chloride 102 mmol/L (98-107); Estimated GFR 81.21 (mL/min/1.73m2); Glucose 145 mg/dL (74-106); Potassium 3.4 mmol/L (3.5-5.1); Sodium 139 mmol/L (136-145); Total Protein 6.8 g/dL (6.4-8.2)
== END 2023-02-28 17:45 | disposition home or self-care (01) ==
LOC: NCHCN 17:44
PROVIDERS: PCP Nurse Practitioner Family; Visit Provider Nurse Practitioner Family
DX: I10 Essential (primary) hypertension (principal)
CPT/HCPCS: 80053; 85027

== ENCOUNTER → 2023-10-04 02:14 | Outpatient (CLI) | payer MEDICARE, SELFPAY ==
--- NOTE | 2023-10-04 | DI.MAMMO_ITS ---
Exam(s) MAMMO SCREENING EXAM: MAMMO SCREENING CLINICAL HISTORY: SCREENING, FAMILY H/O BREAST CA,z12.39 TECHNIQUE: Bilateral full field digital CC and MLO mammographic images were obtained with 3D tomosyn thesis and utilizing computer aided detection (CAD). COMPARISON: Available for comparison. FINDINGS: Masses/Architectural Distortion: None seen. Microcalcifications: No suspicious pleomorphic-type are seen. Skin Thickening/Nipple Retraction: None. IMPRESSION: 1. No significant interval change with no specific features of malignancy noted. 2. Unless there is more urgent need, screening mammography is recommended, as per [employer] guidelines. BI-RADS Category 1 - Negative Breast Density - Category B - Scattered areas of fibroglandular density Breast density category C or D implies that the patient has dense breast tissue. Dense breast tissue is very common and is not abnormal but dense breast tissue can make it harder to find cancer on a ma mmogram. Also, dense breast tissue may increase their breast cancer risk. This information about the result of the mammogram report was provided to the patient to raise their awareness. Use this report when you speak with the patient about their risks for breast cancer, which includes their family hist ory. At that time, you may recommend for more screening tests (Ultrasound or MRI) as they might be us eful based on their risk. A negative radiographic report should not delay biopsy if a dominant or clinically suspicious mass is present. Up to ten percent of cancers are not identified on mammography. A negative report may reinforce clinical impression. Adenosis and dense breasts may obscure an underlying neoplasm. False positive reports average 6 to 10%. Patient will receive a letter notifying them of these results.
== END ==
PROVIDERS: PCP Nurse Practitioner Family; Visit Provider Nurse Practitioner Family
DX: Z12.31 Encounter for screening mammogram for malignant neoplasm of breast (principal)
CPT/HCPCS: 77063; 77067

== ENCOUNTER 2024-03-06 16:09 | Outpatient (REF) | payer MEDICARE, SELFPAY ==
[2024-03-06 15:25] LABS: HCT 44.7 % (36.0-46.0); HGB 14.7 g/dL (11.2-15.7); MCH 30.4 pg (27.0-33.0); MCHC 32.9 % (32.0-36.0); MCV 92 fL (80-95); MPV 10.5 fL (8.0-11.0); Platelet Count 274 10^3/uL (130-400); RBC 4.84 10^6/uL (3.93-5.22); RDW 12.6 % (11.7-14.6); RDW-SD 42.5 fL; WBC 6.99 10^3/uL (4.4-10.8)
[2024-03-06 15:47] LABS: ALT 41 U/L (14-59); AST 23 U/L (15-37); Albumin 4.5 g/dL (3.4-5.0); Alkaline Phosphatase 115 U/L (46-116); Anion Gap 8.4 mmol/L (3-11); BUN 17 mg/dL (7-18); Bilirubin, Total 0.71 mg/dL (0.2-1.0); CO2 29.6 mmol/L (21.0-32.0); CREATININE 0.8 mg/dL (0.55-1.02); Calcium 9.9 mg/dL (8.5-10.1); Calculated LDL 141 mg/dL (<100); Chloride 102 mmol/L (98-107); Cholesterol 230 mg/dL (<200); Estimated GFR 80.71 (mL/min/1.73m2); Glucose 104 mg/dL (74-106); HDL Cholesterol 50 mg/dL (40-60); Potassium 4.2 mmol/L (3.5-5.1); Sodium 140 mmol/L (136-145); Total Protein 7.3 g/dL (6.4-8.2); Triglyceride 198 mg/dL (<150)
== END 2024-03-06 16:10 | disposition home or self-care (01) ==
LOC: NCHCN 16:09
PROVIDERS: PCP Nurse Practitioner Family; Visit Provider Nurse Practitioner Family
DX: E78.5 Hyperlipidemia, unspecified (principal); R00.2 Palpitations
CPT/HCPCS: 80053; 80061; 85027

== ENCOUNTER 2024-03-13 01:01 | Outpatient (CLI) | payer MEDICARE, SELFPAY ==
--- NOTE | 2024-03-13 | DI.US_ITS ---
Exam(s) US CAROTID EXAM: US CAROTID CLINICAL HISTORY: Carotid bruit, R09.89. TECHNIQUE: Ultrasound carotids performed using grayscale, color-flow, and spectral Doppler imaging. COMPARISON: US US carotid from 11/19/2018 FINDINGS: Right subclavian artery: No visible plaque or stenosis. RIGHT CAROTID ARTERY: Plaque: No visible plaque. Velocity elevation: None. LEFT CAROTID ARTERY: Plaque: No visible plaque. Velocity elevation: None. VERTEBRAL ARTERIES: Antegrade flow. Measurements: R Bulb: 62.6cm/s PS / 15.6cm/s ED R CCA: 73.8cm/s PS / 24cm/s ED R ECA: 85.9cm/s PS / 19.2cm/s ED R ICA Prox: 51.4cm/s PS / 18.2cm/s ED R ICA Mid: 69.8cm/s PS / 27.4cm/s ED R ICA Distal: 91.4cm/s PS /33.8cm/s ED R Vert: 39.5cm/s PS / 14.6cm/s ED R SVR: 1.2 R DVR: 1.4 L Bulb: 100.1cm/s PS / 32.4cm/s ED L CCA: 79.3cm/s PS / 23.6cm/s ED L ECA: 79.3cm/s PS / 19.2cm/s ED L ICA Prox: 67.3cm/s PS / 20.3cm/s ED L ICA Mid: 83.2cm/s PS / 33.4cm/s ED L ICA Distal: 76.2cm/s PS / 22.5cm/s ED L Vert: 50.2cm/s PS / 16.1cm/s ED L SVR: 1.3 L DVR: 1.4 IMPRESSION: No evidence for hemodynamically significant carotid stenosis. Right subclavian artery was also visualized and shows no significant plaque or stenosis. Criteria for Carotid Stenosis: Normal: ICA PSV <125 cm/s no plaque or intimal thickening is visible. <50% stenosis: ICA PSV <125 cm/s and plaque or intimal thickening is visible. 50-69% stenosis: ICA PSV is 125-250 cm/s and plaque is visible. >70% stenosis to near occlusion: ICA PSV >250 cm/s with visible plaque and luminal narrowing. DATA REPOSITORY:
== END 2024-03-13 01:21 ==
LOC: DI 01:01
PROVIDERS: PCP Nurse Practitioner Family; Visit Provider Nurse Practitioner Family
DX: R09.89 Other specified symptoms and signs involving the circulatory and respiratory systems (principal)
CPT/HCPCS: 93880

== ENCOUNTER 2024-04-19 00:30 | Outpatient (CLI) | payer MEDICARE, SELFPAY ==
--- NOTE | 2024-04-19 15:10 | DI.CT_ITS ---
Exam(s) CT CHEST WO EXAM: CT CHEST WO CLINICAL HISTORY: CHEST PAIN R07.89. TECHNIQUE: Imaging protocol: Axial computed tomography images were obtained and coronal and sagittal reformatted images were created and reviewed. Computer aided detection (CAD) was utilized. CONTRAST MATERIAL: Noncontrast COMPARISON: CR CHEST 2 VIEWS PA,LAT from 08/22/2007 FINDINGS: Pulmonary parenchyma: No consolidation. No suspicious nodules. Interstitial changes: None. Emphysema: None. Tracheobronchial tree: No mucous plugging. No bronchiectasis . Pleura: No effusion or pneumothorax. Heart: The heart is not dilated. The coronary arteries show no visible calcifications. Aorta: Thoracic aorta non-dilated. No atherosclerotic changes. Lymph nodes: No enlarged lymph nodes. Bones: Degenerative changes are seen. No evidence of compression fracture. Old lateral left rib deformity. Partial resection of the left 6th rib. Upper abdomen: Unremarkable. Soft tissues: Unremarkable. IMPRESSION: No acute abnormality. Prior partial resection of the left 6th rib. No acute rib abnormalities. RADIATION DOSE DELIVERED: Total DLP Total DLP DATA REPOSITORY: All CT scans at this facility are submitted to the National Radiology Data Registry (NRDR) Dose Index Registry (DIR) with the [employer] (ACR). RADIATION OPTIMIZATION: All CT scans at this facility use at least one of these dose optimization te chniques: automated exposure control; mA and/or kV adjustment per patient size (includes targeted exa ms where dose is matched to clinical indication); or iterative reconstruction.
== END 2024-04-19 00:50 ==
LOC: DI 00:30
PROVIDERS: PCP Nurse Practitioner Family; Visit Provider Nurse Practitioner Family
DX: R07.89 Other chest pain (principal)
CPT/HCPCS: 71250

== ENCOUNTER 2024-10-14 01:01 | Outpatient (CLI) | payer MEDICARE, SELFPAY ==
--- NOTE | 2024-10-14 08:14 | DI.MAMMO_ITS ---
Exam(s) MAMMO SCREENING EXAM: MAMMO SCREENING CLINICAL HISTORY: Screening, Z12.31. TECHNIQUE: Bilateral full field digital CC and MLO mammographic images were obtained with 3D tomosyn thesis and utilizing computer aided detection (CAD). COMPARISON: Prior mammograms were reviewed. FINDINGS: There has been no significant change in the appearance and distribution of the fibroglandular tissue. There are no new spiculated masses nor malignant appearing microcalcification groups. There is no significant architectural distortion nor skin thickening-retraction. IMPRESSION: No radiographic evidence of malignancy. BI-RADS Category 1 - Negative Breast Density - Category B - There are scattered areas of fibroglandular density. Breast density Category C or D implies that the patient has dense breast tissue. Dense breast tissue can make it harder to find cancer on a mammogram. Dense breast tissue is also associated with an incr eased risk of breast cancer. This information about the result of the mammogram report was provided to the patient to raise their awareness. Use this report when you speak with the patient about their risks for breast cancer, which includes their family history. At that time, you may recommend additional screening tests (Ultrasoun d or MRI) as these tests may add significant information. A negative radiographic report should not delay biopsy if a dominant or clinically suspicious mass is present. Up to ten percent of cancers are not identified on mammography. A negative report may reinforce clinical impression. Adenosis and dense breasts may obscure an underlying neoplasm. False positive reports average 6 to 10%. Patient will receive a letter notifying them of these results.
== END 2024-10-14 01:21 ==
PROVIDERS: PCP Nurse Practitioner Family; Visit Provider Nurse Practitioner Family
DX: Z12.31 Encounter for screening mammogram for malignant neoplasm of breast (principal); R92.323 Mammographic fibroglandular density, bilateral breasts
CPT/HCPCS: 77063; 77067

== ENCOUNTER 2024-10-24 01:09 | Outpatient (CLI) | payer MEDICARE, SELFPAY ==
--- NOTE | 2024-10-24 | DI.DEXA_ITS ---
Exam(s) XR DEXA BONE DENSITY W/WO STELLA EXAM: XR DEXA BONE DENSITY W/WO STELLA CLINICAL HISTORY: Asymptomatic menopausal state, Z78.0 TECHNIQUE: Routine DEXA evaluation of the lumbar spine, hip, or forearm. COMPARISON: No exams were available for comparison FINDINGS: Performed on a Hologic unit. Lateral image: No compression fracture evident. Lumbar Spine total T-score: 0.0. Prior reading in October 2018 was -0.3. Both are in the normal range Hip total T-score:-0.8. This is identical to the reading of October 2018. normal range Independent reading at the level of the femoral neck yields T-score of -1.0 remains in normal range Forearm total T-score: -0.1. Normal range. Prior reading in October 2018 was -0.5. IMPRESSION: Bone mineral density measures in the normal range. Fracture risk is low. Note: Any spine fracture indicates 5x risk for subsequent spine fracture and 2x risk for subsequent h ip fracture. World Health Organization criteria for BMD interpretation classify patients: Normal...... T- Score at or above -1.0 Osteopenic... T- Score between -1.0 and -2.5 Osteoporosis... T-Score at or below -2.5
== END 2024-10-24 01:29 ==
LOC: DI 01:09
PROVIDERS: PCP Nurse Practitioner Family; Visit Provider Nurse Practitioner Family
DX: Z78.0 Asymptomatic menopausal state (principal); M81.0 Age-related osteoporosis without current pathological fracture
CPT/HCPCS: 77080

== ENCOUNTER → 2024-11-28 12:46 | Outpatient (BNVA) | payer MEDICARE, SELFPAY | PROVIDERS: PCP Nurse Practitioner Family; Referring Provider Nurse Practitioner Family; Visit Provider Physical Therapy Assistant | DX: Z12.11 Encounter for screening for malignant neoplasm of colon (principal); Z86.0109 Personal history of other colon polyps | CPT/HCPCS: S0285 ==

== ENCOUNTER 2024-12-09 07:59 | Day surgery (SDC) | payer MEDICARE, SELFPAY ==
--- NOTE | 2024-12-08 03:41 | W.PM.DSUDISC ---
Date of service: 12/09/24 Discharge Plan Disposition Patient Disposition: Home Condition: Good Discharge Details Reason For Visit: Screening colonoscopy Attending Provider: Rober Rodarte Primary Care Provider: Brandi Verma Home Meds and New Rx's Prescriptions: Continued ibuprofen 200 mg tablet 800 mg PO Q6H PRN acetaminophen 500 mg capsule 1,000 mg PO Q6H PRN losartan-hydrochlorothiazide 100-25 mg tablet 1 tab PO DAILY clindamycin HCl 300 mg capsule 600 mg PO ONCE PRN Rx Instructions: 1 hour prior to dental appt. fvkrafpsgors-Fm-ssem-minerals 18-0.4 mg tablet PO DAILY Discontinued bisacodyl [Dulcolax (bisacodyl)] 5 mg tablet,delayed release (DR/EC) 5 mg PO ONCE Qty: 4 0RF Rx Instructions: Take per colonoscopy instructions provided by ordering providers office polyethylene glycol 3350 17 gram/dose powder 17 g PO ONCE Qty: 238 0RF Rx Instructions: Take per colonoscopy instructions provided by ordering providers office Discharge Instructions Instructions: Colon polyps, Diverticulosis Additional Instructions: Lanette, it was very nice meeting you today, and I hope you are comfortable through the procedure. I did find, and removed 2 polyps today. Both of these were quite small, and I do not think they are anything at all to worry about. These will be sent off to the pathology for them to review. Once I know the nature of these polyps, my office will be in touch with recommendations for future colonoscopies. Incidentally, you also have some diverticulosis. I will attach some information here about diverticulosis as well as colorectal polyps. If you need anything or have any questions, please do not hesitate to call at any time. 1. If tolerated, consume a soft, low fiber diet for 1-2 days. 2[address] Do not drive, drink alcohol, operate machinery, make critical decisions, or do activities that require coordination or balance for 24 hours. 3. Because air was put into your colon during the procedure, expelling air from your rectum (passing gas or farting) is normal. 4. You may not have a bowel movement for 1-3 days because of the colonoscopy prep. This is normal. 5. Go directly to the emergency room if you notice any of the following: Develop chills (warm to touch), or if you have a thermometer and your temperature is above 101 Difficulty breathing or difficultly swallowing Persistent vomiting Severe abdominal pain, other than gas cramps Severe chest pain Black, tarry stools Any bleeding ? exceeding one tablespoon 6. Call your physician if the site where your intravenous was started becomes red, swollen, painful, and warm to touch. 7. Your physician has reviewed your pre-procedure medications. Please continue to take those medications as previously ordered. You will be given specific information/education regarding any changes to your medications before leaving. Stand Alone Forms: Anesthesia Discharge InstJeferson Vo (DSU) Activity:: Activity as Tolerated Diet:: As Tolerated Discharge Orders Discharge Orders: Discharge Order (Routine); Ordered 12/08/24 Ordered By: Rober Rodarte DS: Diagnosis Discharge Diagnosis (1) Encounter for screening colonoscopy: Status: Acute Asessment and Plan: Follow-up on polypectomy results
--- NOTE | 2024-12-08 03:42 | COLE_ITS ---
Date of service: 12/09/24 Time of Service: 10:46 Colonoscopy Report Date of procedure: 12/09/24 Pre-op diagnosis general: Screening colonoscopy Post-op diagnosis procedure note: other (Colon polyps, diverticulosis) Procedure: Colonoscopy with polypectomy Surgeon: Rober Rodarte Anesthesia Type: General:No Airway Estimated blood loss (mL): 5 Pathology: other (0.25 cm polyp at 80 cm, 0.25 cm polyp at 20 cm) Complications: None Disposition: same day Indications: Teto is a 69-year-old woman with a history of adenomatous polyps who needs her next screening Prep: Miralax/Dulcolax Procedure Start Time: 10:16 Procedure End Time: 10:35 Retraction Time: 13 Findings: Sigmoid diverticulosis, colon polyps Procedure Description: After the induction of anesthesia, and with the patient in left lateral decubitus position, I began by performing an external anorectal exam.? Perineum and skin were normal, as was the anal verge.? There was evidence of external hemorrhoids.? Next, I performed a digital rectal exam.? I did not appreciate any abnormal findings.? Next, I advanced a colonoscope into the rectal vault.? I performed retroflexion.? There are internal hemorrhoids.? Using irrigation, I then advanced the colonoscope beyond the rectal folds and into the sigmoid colon before advancing towards the cecum.? There is sigmoid diverticulosis.? The scope was noted to be in the cecum by identification of the ileocecal valve and dennis endiceal orifice.? I then began withdrawing the colonoscope using repeated irrigation as necessary for full evaluation of the colonic mucosa. ?Around 80 cm from the anal verge was a 0.25 cm flat polyp. This was removed with cold forceps. There was minimal bleeding. Similarly, a 0.25 cm flat polyp was found at 20 cm. This was also removed with cold forceps without incident. Once the scope was withdrawn to the level of the rectum, great care was taken to examine portions of the rectal folds.? Finally, the scope was withdrawn and the patient was brought to the same-day surgery recovery unit as the anesthetic wore off. ?The findings and instructions were shared with the patient prior to discharge. Loretto Bowel Prep Loretto Bowel Prep Right Colon: 2 Left Colon: 2 Transverse Colon: 2 Total Score: 6
[2024-12-09 08:54] VITALS: BP 144/88; PULSE 71; RESP 16; TEMP 36.8; O2SAT 100
[2024-12-09] MEDS: Lactated Ringers 1,000 ML 80 ML IV (09:14)
[2024-12-09 10:04] VITALS: BMI 27.8
--- NOTE | 2024-12-09 10:04 | ANES.PREOP_ITS ---
General Info Date of Service Date Performed: 12/09/24 Height: 5 ft 2 in Weight: 68.9 kg Body Mass Index (BMI): 27.8 Surgical Procedure: Operation Date: 12/09/24 09:50 Proposed Procedure Side Surgeon felicia Rodarte MD Meds Allergies and Home Medications Allergies Allergy/AdvReac Type Severity Reaction Status Date / Time influenza A (H5N1) virus Allergy Severe rash Verified 12/09/24 08:50 vaccine mo Penicillins Allergy Unknown Verified 12/09/24 08:50 oxycodone (From Percocet) AdvReac Mild Nausea and Verified 12/09/24 08:50 vomiting Eggs AdvReac Stomach Uncoded 12/09/24 08:50 Ache Home Medication ?Medication ?Instructions ?Recorded ibuprofen 200 mg tablet 800 mg PO Q6H PRN 07/07/21 acetaminophen 500 mg capsule 1,000 mg PO Q6H PRN 08/02 clindamycin HCl 300 mg capsule 600 mg PO ONCE PRN 09/11 10/03 losartan 100 1 tab PO DAILY 10/04/23 mg-hydrochlorothiazide 25 mg tablet macmlhaamhrr-So-fxzo-minerals 18 tab PO DAILY 10/04/23 mg-0.4 mg tablet Current Visit Medications: Current Medications Generic Name Dose Route Start Last Admin Trade Name Freq PRN Reason Stop Dose Admin Ringer's Solution 1,000 mls @ 80 mls/hr 12/09/24 06:00 12/09/24 09:14 IV 12/09/24 23:59 80 mls/hr INFUSION NINI Administration IV Miscellaneous Supplies 1 each 12/09/24 06:00 Iv Access IV 12/09/24 23:59 DIRECTED NINI Ondansetron HCl 4 mg 12/08/24 03:45 Ondansetron 4 Mg/2 Ml Vial IVP 01/07/25 03:44 Q4H PRN PRN Nausea / Vomiting Sodium Chloride 0 ml 12/09/24 06:00 Normal Saline Flush 10 Ml Syr IV 12/09/24 23:59 PRN PRN Sodium Chloride 0 ml 12/09/24 06:00 Normal Saline 10 Ml Vial IJ 12/09/24 23:59 DIRECTED PRN Sterile Water 0 ml 12/09/24 06:00 Water,Injection,Sterile 10 Ml Vial IJ 12/09/24 23:59 DIRECTED PRN PFSH Active Problems Active Problems: Problem Status Onset Code Hyperlipidemia Acute E78.5 Eczema Acute L30.9 Hypertension Chronic I10 Bilateral carotid bruits Acute R09.89 DJD (degenerative joint disease) Chronic M19.90 Menopause Acute Z78.0 Encounter for screening colonoscopy Acute Z12.11 Colon polyps Acute K63.5 Sialadenitis Acute K11.20 Submandibular sialoadenitis Acute K11.20 Submandibular sialolithiasis Acute K11.5 Medical History Medical History Submandibular sialolithiasis Surgery, elective Sialodocholithotomy, right submandibular gland, 07/19/2021 Surgical History Surgical History H/O tubal ligation History of back surgery History of colonoscopy 04/30 - tubular adenoma. 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) Tobacco Smoking/Tobacco Use Status: Former Tobacco Use Alcohol Alcohol Intake: current Alcohol intake frequency: holidays/special occasions onl y Alcohol type: wine Substance Use Substance use: Occasionally Substance use type: marijuana Details: marijuana a few days ago no alcohol for months Vital Signs and Lab Results Vital Signs Most Recent Vital Signs in EMR: Most Recent Vital Signs Temp Pulse Resp BP Pulse Ox 36.8 C 71 16 144/88 H 100 12/09/24 08:54 12/09/24 08:54 12/09/24 08:54 12/09/24 08:54 12/09/24 08:54 Imaging and Studies Imaging and Studies Study information below may be from another EMR and interpreted by another provider. Please see original notes in EMR for more complete details. Carotid Artery Summary:: Date of Exam: 11/19/18Sex: F Admission Date: 11/19/18 : 1955 Age: 63 Exam(s) a US:US carotid SYMPTOM/DIAGNOSIS: BILATERAL CAROTID BRUITS R09.89 ULTRASOUND CAROTIDS: The carotid arteries appear intact. Antegrade flow was noted in the vertebrals. Velocity measurements reveal no evidence of significant carotid stenosis. Anesthesia Assessment and Plan Anesthesia History Personal History: No History of Anesthesia Complications Family History: No Family History of Anesthesia Complications Exercise Tolerance Exercise Tolerance: Metabolic Equivalents>4 Pertinent Negatives Pertinent Negatives: No Symptoms of GERD Cardiac & Pulmonary Exam Cardiac Exam: Normal S1/S2 Heart Sounds Pulmonary Exam: Clear Bilateral Breath Sounds Implantable Cardiac Device Does patient have a Pacemaker or an ICD?: No Airway Exam Known Difficult Airway: No Mallampati Class: 1 Mouth Opening: Normal (> 3cm) Thyromental Distance: Greater than 3 cm Neck Range of Motion: Full ROM Neck Circumference: Normal Teeth Condition: Normal Dentition ASA Classification ASA Score: ASA 2 Emergency Case?: No NPO Status NPO Status: NPO Clears >2 hours, Solids >8 hours Anesthesia Plan Resuscitation Status: Full Code Anesthesia Technique: General Anesthesia Airway Planned: Natural Airway Monitors Used: Standard Monitors
--- NOTE | 2024-12-09 10:29 | BOWEL_PTH ---
PATIENT: Teto Pena LOC: [facility] U#:[id number] AGE/SX: 69/F ROOM: RE12/09/[address]: Rober Rodarte MD : 1955 BED: DIS: 12/09/2024 SPEC #: [id number] RECD: 12/09/24 13:14 STATUS: RAO REQ #: [id number] ALEX: 12/09/24 10:[address]: Rober Rodarte DEPT: Surgical Specimen RECD BY: Shey Shukla ENTERED: 12/09/24 13:15 SP TYPE: Bowel OTHR DR: Brandi Verma Tissues: 1 - BIOPSY BOWEL 2 - BIOPSY BOWEL Procedures: GROSS AND MICRO LEVEL 4 Comments: [id number]
[2024-12-09 10:43] VITALS: BP 106/68; PULSE 87; RESP 17; TEMP 36.7; O2SAT 96
--- NOTE | 2024-12-09 10:51 | W.ANESPOSTOP ---
Postoperative Evaluation Date, Time and Location Date Performed: 12/09/24 Time Performed: 10:51 Patient Location: Day Surgery Unit Vital Signs Most Recent Imported Vital Signs: Most Recent Vital Signs Temp Pulse Resp BP Pulse Ox 36.8 C 71 16 144/88 H 100 12/09/24 08:54 12/09/24 08:54 12/09/24 08:54 12/09/24 08:54 12/09/24 08:54 Pain Score Most Recent Pain Score: Most Recent Pain Score Pain Level 1 12/09/24 08:54 Assessment Mental Status: Awake (Alert & Oriented to Patient Baseline) Airway and Respiratory Function: Patent airway with normal (patient baseline) respiratory exam Cardiovascular Function: Hemodynamically Stable Hydration Status: Adequately Hydrated Nausea & Vomiting: No Nausea or Vomiting Pain: Pt. Denies Any Pain Peripheral Nerve Block: Patient did not receive a nerve block
[2024-12-09 11:04] VITALS: BP 118/75; PULSE 64; RESP 17; TEMP 36.4; O2SAT 99
== END 2024-12-09 11:25 | disposition home or self-care (01) ==
PROVIDERS: PCP Nurse Practitioner Family; Visit Provider Surgery
PROC: 0DJD8ZZ Inspection of Lower Intestinal Tract, Via Natural or Artificial Opening Endoscopic (ICD-10-PCS; CPT 45378; principal; 2024-12-09 09:45)
DX: Z12.11 Encounter for screening for malignant neoplasm of colon (principal); K57.30 Diverticulosis of large intestine without perforation or abscess without bleeding; D12.4 Benign neoplasm of descending colon
CPT/HCPCS: 45380; 88305; J2003; J2405; J2704

== ENCOUNTER 2025-03-26 11:41 | Outpatient (REF) | payer MEDICARE, SELFPAY ==
[2025-03-26 15:38] LABS: ALT 60 U/L (14-59); AST 23 U/L (15-37); Albumin 4.4 g/dL (3.4-5.0); Alkaline Phosphatase 111 U/L (46-116); Anion Gap 11.9 mmol/L (3-11); BUN 16 mg/dL (7-18); Bilirubin, Total 0.7 mg/dL (0.2-1.0); CO2 27.1 mmol/L (21.0-32.0); Calcium 9.7 mg/dL (8.5-10.1); Calculated LDL 169 mg/dL (<100); Chloride 102 mmol/L (98-107); Cholesterol 263 mg/dL (<200); Estimated GFR 94.15 (mL/min/1.73m2); Glucose 97 mg/dL (74-106); HDL Cholesterol 46 mg/dL (>or=50); Potassium 4.0 mmol/L (3.5-5.1); Sodium 141 mmol/L (136-145); Total Protein 7.2 g/dL (6.4-8.2); Triglyceride 244 mg/dL (<150)
== END 2025-03-26 11:42 | disposition home or self-care (01) ==
LOC: NCHCN 11:41
PROVIDERS: PCP Nurse Practitioner Family; Visit Provider Nurse Practitioner Family
DX: E78.5 Hyperlipidemia, unspecified (principal); I10 Essential (primary) hypertension
CPT/HCPCS: 80053; 80061